=== PATIENT | male | born 1940 | race Caucasian/White ===

== ENCOUNTER → 2018-06-14 | Outpatient (CLI) | payer OTHER, MEDICARE | LOC: BMCIMAGING 13:57 | PROVIDERS: ATTEND Emergency Medicine | DX: M79.605 Pain in left leg (principal); M71.22 Synovial cyst of popliteal space [Baker], left knee ==

== ENCOUNTER 2018-11-19 09:37 | Inpatient (IN) | payer OTHER, MEDICARE ==
--- NOTE | 2018-11-19 10:01 | EDPHY ---
H & P Stated Complaint: syncopal event this mornning +LOC, possible siezure Time Seen by Provider: 11/19/18 09:47 HPI/ROS: Chief complaint: Syncope History of present illness: This is a 78-year-old male who presents to the emergency department for evaluation of a syncopal episode. Patient is visiting from [facility]. He arrived here approximately a week ago. Over the last few days he has felt slightly lightheaded. This morning he got up to urinate, he stood up from bed, walked over to the toilet, started to urinate at which time he collapsed. His and daughter found him in the bathroom. According to family he did momentarily appear to be stiff like he was having a seizure. No tonic-clonic activity was reported. Stiffness quickly resolved and patient quickly returned to baseline. It does not sound like there was a postictal state. At this time patient does state he is sore from where he struck himself during the fall. Patient does report for the last few days he has had a slight, nonproductive cough otherwise he denies other associated signs or symptoms including no fevers or other cold symptoms, no headache, no chest pain, no trouble breathing, no palpitations, no pain or swelling in the legs. He has had syncopal episodes previously. Review of systems: A 10 point review of systems was obtained and other than described above was negative - Medical/Surgical History Hx Asthma: No Hx Chronic Respiratory Disease: No Hx Diabetes: No Hx Cardiac Disease: No Hx Renal Disease: No Hx Cirrhosis: No Hx Alcoholism: No Hx HIV/AIDS: No Hx Splenectomy or Spleen Trauma: No Other PMH: [place] with stent, vasectomy, hypothyroid, HTN - Social History Smoking Status: Never smoked - Physical Exam Exam: General Appearance: Alert and oriented, no acute distress Eyes: PERRLA. Respiratory: Lungs clear to auscultation bilaterally. Cardiac: Regular rate and rhythm. Gastrointestinal: Bowel sounds normal. Abdomen is soft, nondistended, nontender. Neurological: Alert and oriented x4. Cranial nerves 2-12 grossly intact. Strength and sensation intact and symmetrical. Skin: No traumatic lesions noted. Musculoskeletal: The head is nontender without crepitus or bony deformity. The spine is nontender to palpation along its entire length, no crepitus, bony deformity or step-off. Chest wall intact palpation. Patient moving all extremities well. Constitutional: Initial Vital Signs Temperature (C) 36.7 C 11/19/18 09:40 Heart Rate 67 11/19/18 09:40 Respiratory Rate 18 11/19/18 09:40 Blood Pressure 150/87 H 11/19/18 09:40 O2 Sat (%) 95 11/19/18 09:40 O2 Delivery Mode Room Air Allergies/Adverse Reactions: Iodinated Contrast- Oral and IV Dye Allergy (Intermediate, Verified 11/19/18 11: 08) Other-Enter Comments Home Medications: Medication Instructions Recorded Atorvastatin Calcium [Lipitor 20 20 mg PO DAILY@12 06/10/16 mg (*)] Hydrochlorothiazide [HCTZ (*)] 25 mg PO DAILY@12 06/10/16 C/E/Zn/Cu/OM3/DHA/EPA/LUT/ZEAX 1 each PO BID 11/19/18 [Preservision Areds 2 Softgel] Herbals/Supplements -Info Only 1 ea PO DAILY 11/19/18 Ibuprofen [Motrin (*)] 200 mg PO DAILY PRN 11/19/18 Levothyroxine [Synthroid 50 mcg 50 mcg PO DAILY06 11/19/18 (*)] Medical Decision Making ED Course/Re-evaluation: Patient is discussed with my secondary supervising physician Dr. Anjana Lemus. Patient presents to the emergency department after having a syncopal episode today. He had lightheadedness leading up to the event. He does have a cardiac history. He is in ventricular trigeminy. Otherwise his workup is unremarkable. He he will be admitted to the hospitalist service for further evaluation and care. Plan has been discussed with the patient who voiced understanding and agreement with it. Differential Diagnosis: Included but not limited to syncope from volume depletion, vasovagal, cardiac disturbance, seizure activity - Data Points Laboratory Results: Laboratory Results 11/19/18 09:53 11/19/18 09:53 11/19/18 11/19/18 11/19/18 10:03 09:53 09:53 WBC RBC Hgb Hct MCV MCH MCHC RDW Plt Count MPV Neut % (Auto) Lymph % (Auto) Churchill % (Auto) Eos % (Auto) Baso % (Auto) Nucleat RBC Rel Count Absolute Neuts (auto) Absolute Lymphs (auto) Absolute Monos (auto) Absolute Eos (auto) Absolute Basos (auto) Absolute Nucleated RBC Immature Gran % Immature Gran # D-Dimer 0.45 ug/mLFEU ug/mLFEU (0.00-0.50) Sodium Potassium Chloride Carbon Dioxide Anion Gap BUN Creatinine Estimated GFR Glucose Calcium Magnesium 1.8 mg/dL mg/dL (1.6-2.3) POC Troponin I 0.02 ng/mL ng/mL (0.00-0.08) 11/19/18 11/19/18 09:53 09:53 WBC 13.32 10^3/uL H 10^3/uL (3.80-9.50) RBC 5.08 10^6/uL 10^6/uL (4.40-6.38) Hgb 16.2 g/dL g/dL (13.7-17.5) Hct 47.4 % % (40.0-51.0) MCV 93.3 fL fL (81.5-99.8) MCH 31.9 pg pg (27.9-34.1) MCHC 34.2 g/dL g/dL (32.4-36.7) RDW 13.0 % % (11.5-15.2) Plt Count 208 10^3/uL 10^3/uL (150-400) MPV 9.8 fL fL (8.7-11.7) Neut % (Auto) 78.2 % H % (39.3-74.2) Lymph % (Auto) 11.9 % L % (15.0-45.0) Churchill % (Auto) 7.9 % % (4.5-13.0) Eos % (Auto) 0.7 % % (0.6-7.6) Baso % (Auto) 0.5 % % (0.3-1.7) Nucleat RBC Rel Count 0.0 % % (0.0-0.2) Absolute Neuts (auto) 10.43 10^3/uL H 10^3/uL (1.70-6.50) Absolute Lymphs (auto) 1.59 10^3/uL 10^3/uL (1.00-3.00) Absolute Monos (auto) 1.05 10^3/uL H 10^3/uL (0.30-0.80) Absolute Eos (auto) 0.09 10^3/uL 10^3/uL (0.03-0.40) Absolute Basos (auto) 0.06 10^3/uL 10^3/uL (0.02-0.10) Absolute Nucleated RBC 0.00 10^3/uL 10^3/uL (0-0.01) Immature Gran % 0.8 % % (0.0-1.1) Immature Gran # 0.10 10^3/uL 10^3/uL (0.00-0.10) D-Dimer Sodium 139 mEq/L mEq/L (135-145) Potassium 3.9 mEq/L mEq/L (3.5-5.2) Chloride 104 mEq/L mEq/L (97-110) Carbon Dioxide 25 mEq/l mEq/l (22-31) Anion Gap 10 mEq/L mEq/L (6-14) BUN 20 mg/dL mg/dL (7-23) Creatinine 0.7 mg/dL mg/dL (0.7-1.3) Estimated GFR > 60 Glucose 128 mg/dL H mg/dL (70-100) Calcium 9.7 mg/dL mg/dL (8.5-10.4) Magnesium POC Troponin I Point of Care Test Results: Chemistry 11/19/18 10:03 POC Troponin I 0.02 ng/mL ng/mL (0.00-0.08) Departure - Departure Disposition: [facility] Inpatient Acute Clinical Impression: Syncope Qualifiers: Syncope type: unspecified Qualified Code(s): R55 - Syncope and collapse Condition: Good
[2018-11-19 10:14] LABS: PLATELET COUNT 208 10^3/uL (150-400)
[2018-11-19] MEDS ORDERED: ONDANSETRON 4 MG/2 ML VIAL IVP PRN (12:34)
[2018-11-19] MEDS ORDERED: ONDANSETRON DISINTEGRATING 4 MG TAB PO PRN (12:34)
[2018-11-19] MEDS ORDERED: ACETAMINOPHEN 325 MG TAB PO PRN (12:34)
[2018-11-19] MEDS ORDERED: IBUPROFEN 200 MG TAB PO PRN (12:49)
[2018-11-19] MEDS ORDERED: hydrALAZINE 20 MG/ML VIAL IVP PRN (13:02)
--- NOTE | 2018-11-19 13:02 | PDGENHP ---
History and Physical - Chief Complaint SYNCOPE - History of Present Illness This is a 78-year-old male who presents to the emergency department for evaluation of a syncopal episode. Patient is visiting from [facility]. He arrived here approximately a week ago. Over the last few days he has felt slightly lightheaded. This morning he got up to urinate, he stood up from bed, walked over to the toilet, started to urinate at which time he collapsed. His and daughter found him in the bathroom. There was no seizure activity noted. There was no postictal state. Denies fevers or other cold symptoms, no headache, no chest pain, no trouble breathing, no palpitations, no pain or swelling in the legs. He has had syncopal episodes previously. PMH: [place] with stent, vasectomy, hypothyroid, HTN - Social History Smoking Status: Never smoked FmHx: non contributory EKG: Trigeminy History Information - Allergies/Home Medication List Allergies/Adverse Reactions: Iodinated Contrast- Oral and IV Dye Allergy (Intermediate, Verified 11/19/18 11: 08) Other-Enter Comments Home Medications: Atorvastatin Calcium [Lipitor 20 mg (*)] 20 mg PO DAILY@12 06/10/16 [Last Taken 11/18/18] Hydrochlorothiazide [HCTZ (*)] 25 mg PO DAILY@12 06/10/16 [Last Taken 11/18/18] C/E/Zn/Cu/OM3/DHA/EPA/LUT/ZEAX [Preservision Areds 2 Softgel] 1 each PO BID [Last Taken 11/18/18 21:00] Herbals/Supplements -Info Only 1 ea PO DAILY 11/19/18 [Last Taken Unknown] Ibuprofen [Motrin (*)] 200 mg PO DAILY PRN 11/19/18 [Last Taken Unknown] Levothyroxine [Synthroid 50 mcg (*)] 50 mcg PO DAILY06 11/19/18 [Last Taken ] I have personally reviewed and updated: medical history, social history - Social History Smoking Status: Never smoked Review of Systems Review of Systems: ROS: 10pt was reviewed & negative except for what was stated in HPI & below Physical Exam Physical Exam: Temp Pulse Resp BP Pulse Ox 36.4 C 65 14 160/89 H 95 11/19/18 12:15 11/19/18 12:15 11/19/18 12:15 11/19/18 12:15 11/19/18 12:15 Constitutional: no apparent distress Eyes: PERRL, EOMI Ears, Nose, Mouth, Throat: moist mucous membranes, hearing normal Cardiovascular: regular rate and rhythym, No edema Respiratory: no respiratory distress, no rales or rhonchi, clear to auscultation Skin: warm Neurologic: AAOx3 Psychiatric: interacting appropriately, not anxious, not encephalopathic Lymph, Heme, Immunologic: No petechiae Lab Data & Imaging Review 11/19/18 09:53 11/19/18 09:53 WBC 13.32 10^3/uL (3.80-9.50) H 11/19/18 09:53 RBC 5.08 10^6/uL (4.40-6.38) 11/19/18 09:53 Hgb 16.2 g/dL (13.7-17.5) 11/19/18 09:53 Hct 47.4 % (40.0-51.0) 11/19/18 09:53 MCV 93.3 fL (81.5-99.8) 11/19/18 09:53 MCH 31.9 pg (27.9-34.1) 11/19/18 09:53 MCHC 34.2 g/dL (32.4-36.7) 11/19/18 09:53 RDW 13.0 % (11.5-15.2) 11/19/18 09:53 Plt Count 208 10^3/uL (150-400) 11/19/18 09:53 MPV 9.8 fL (8.7-11.7) 11/19/18 09:53 Neut % (Auto) 78.2 % (39.3-74.2) H 11/19/18 09:53 Lymph % (Auto) 11.9 % (15.0-45.0) L 11/19/18 09:53 Ward % (Auto) 7.9 % (4.5-13.0) 11/19/18 09:53 Eos % (Auto) 0.7 % (0.6-7.6) 11/19/18 09:53 Baso % (Auto) 0.5 % (0.3-1.7) 11/19/18 09:53 Nucleat RBC Rel Count 0.0 % (0.0-0.2) 11/19/18 09:53 Absolute Neuts (auto) 10.43 10^3/uL (1.70-6.50) H 11/19/18 09:53 Absolute Lymphs (auto) 1.59 10^3/uL (1.00-3.00) 11/19/18 09:53 Absolute Monos (auto) 1.05 10^3/uL (0.30-0.80) H 11/19/18 09:53 Absolute Eos (auto) 0.09 10^3/uL (0.03-0.40) 11/19/18 09:53 Absolute Basos (auto) 0.06 10^3/uL (0.02-0.10) 11/19/18 09:53 Absolute Nucleated RBC 0.00 10^3/uL (0-0.01) 11/19/18 09:53 Immature Gran % 0.8 % (0.0-1.1) 11/19/18 09:53 Immature Gran # 0.10 10^3/uL (0.00-0.10) 11/19/18 09:53 D-Dimer 0.45 ug/mLFEU (0.00-0.50) 11/19/18 09:53 Sodium 139 mEq/L (135-145) 11/19/18 09:53 Potassium 3.9 mEq/L (3.5-5.2) 11/19/18 09:53 Chloride 104 mEq/L (97-110) 11/19/18 09:53 Carbon Dioxide 25 mEq/l (22-31) 11/19/18 09:53 Anion Gap 10 mEq/L (6-14) 11/19/18 09:53 BUN 20 mg/dL (7-23) 11/19/18 09:53 Creatinine 0.7 mg/dL (0.7-1.3) 11/19/18 09:53 Estimated GFR > 60 11/19/18 09:53 Glucose 128 mg/dL (70-100) H 11/19/18 09:53 Calcium 9.7 mg/dL (8.5-10.4) 11/19/18 09:53 POC Troponin I 0.02 ng/mL (0.00-0.08) 11/19/18 10:03 Assessment & Plan Assessment: #Syncope, likely Vasovagal vs orthostatic. History of multiple syncope episodes -check TTE -Tele -orthostatics #HTN: reports he does not tolerate tight control. Permissive HTN has been chosen -for now hold HCTZ which he takes at home. #Leukocytosis, likely reactive #Trigeminy #HLD Plan: Admit w/u per above BP mgmt check electrolytes SCD's home meds
--- NOTE | 2018-11-19 15:14 | PDMN ---
Medical Necessity Medical necessity: Pt meets IP criteria per MD & MCG [id number]; est los >2 mn for eval/tx of ventricular trigemeny w/syncope; admit for further workup/monitoring & orthostatics; hx multiple syncopal episodes; per H&P & order 11/19/18
--- NOTE | 2018-11-19 15:35 | CPEKG ---
Test Reason : OPEN Blood Pressure : / mmHG Vent. Rate : 062 BPM Atrial Rate : 062 BPM P-R Int : 136 ms QRS Dur : 094 ms QT Int : 410 ms P-R-T Axes : 014 -09 150 degrees QTc Int : 417 ms Sinus rhythm Ventricular trigeminy Confirmed by Anjana Lemus ([id number]) on 11/19/2018 3:34:48 PM Referred By: Anjana Lemus Confirmed By:Anjana Lemus
--- NOTE | 2018-11-19 16:27 | ECHO ---
[email or web address] [address] Main: [phone] Echocardiography Examination Transthoracic Name: LANDY DOMINGUEZ MR#: [id number] Study Date: 11/19/2018 Study Time: 01:34 PM Date of : 1940 Age: 78 year(s) Height: 182.9 cm (72 in.) Weight: 86.18 kg (190 lb.) BSA: 2.08 m2 Gender: Male Examination: Echo Contrast: Image Quality: Rhythm: Normal sinus rhythm Heart Rate: 64 bpm BP: 160 mmHg/89 mmHg Indication: Cardiac: syncope Procedure Staff Referring Physician: Dental Coordinator: Jl Haile RDCS Reading Physician: Joey Reid MD Requesting Provider: Ordering Physician: Yony Stanford Indication: Cardiac: syncope Measurements Chambers AV/MV Label Value Normal Value Label Value Normal Value LVOT Vmax 0.9 m/s (0.7m/s - 1.1m/s) AV PGmax 9 mmHg LVOTd 2.1 cm (1.9cm - 2.1cm) AV PGmean 5 mmHg LVOT VTI 23 cm (18cm - 22cm) AV Vmax 1.51 m/s LVDd, 2D 4.8 cm (4.2cm - 5.9cm) DEANDRA (Vmax) 2.1 cm2 LVDs, 2D 3 cm (2.1cm - 4cm) DEANDRA (VTI) 2.8 cm2 IVSd, 2D 0.9 cm (0.6cm - 1.1cm) MV E Vmax 0.66 m/s LVPWd, 2D 0.9 cm (0.6cm - 1cm) MV A Vmax 0.96 m/s LVEF, 2D 66 % (54% - 74%) MV E/A 0.69 LVOT PGmean 2 mmHg MV E/E' lateral 8.7 LVOT Vmean 0.63 m/s MV E/E' septal 14.1 (0.45 - 1.25) RVDd, 2D 3.5 cm (1.9cm - 3.8cm) MV E' septal 0.05 m/s LA Volume, BP 35 ml (18ml - 58ml) MV E' lateral 0.08 m/s LADs, 2D 3.2 cm (3cm - 4cm) MV E/E' mean 10.15 LAESV index, BP 16.8 ml/m2 MV E' mean 0.06 m/s Additional Vessels TV/PV Label Value Normal Value Label Value Normal Value AoRoot, MM 3.8 cm (2.2cm - 3.7cm) RA Pressure 5 mmHg RVSP 39 mmHg TR Pmax 34 mmHg Patient: LANDY DOMINGUEZ Study Date: 11/19/2018 Page 1 of 2 01:34 PM TR Vmax 2.92 m/s MS End márquez Alex 0.58 cm/s PV PGmax 2 mmHg PV Vmax, Caliper 0.75 m/s (0.6m/s - 0.9m/s) Conclusions Normal left ventricular size with preserved LV systolic function. The ejection fraction is estimated at 55-60%. Normal left ventricular free wall thickness without regional wall motion abnormalities. Grade 1 diastolic dysfunction. Normal LA, RA and RV dimensions. Prominent moderator band. Trileaflet aortic valve with mild sclerosis. There is no stenosis or insufficiency. Normal-appearing mitral valve. Mild mitral annular calcification. Trivial mitral regurgitation. Normal-appearing tricuspid valve with mild tricuspid regurgitation. Mildly elevated estimated RVSP at 39 mmHg. No previous studies. Findings Left Ventricle: Left ventricle is normal in size. Normal global systolic left ventricular function. Left ventricle wall thickness is normal. There are no regional wall motion abnormalities. Grade I Diastolic Dysfunction. Right Ventricle: Normal size right ventricle. Right ventricular systolic function is normal. The moderator band is prominent. Left Atrium: The left atrium is normal in size. Right Atrium: The right atrium is normal in size. Mitral Valve: Mitral valve appears structurally normal. There is mild mitral calcification. Aortic Valve: Aortic leaflets are structurally normal. There is no aortic stenosis. Aortic leaflets exhibit mild calcification. The aortic valve is trileaflet. Tricuspid Valve: Tricuspid valve leaflets are normal in appearance and function. Mild tricuspid regurgitation. Right Ventricular systolic pressure is measured at 39 mmHg. Pulmonary artery pressure is upper limits of normal. Pulmonic Valve: Pulmonic leaflets are structurally normal. Trivial pulmonic valve regurgitation is present. Aorta: The aorta is normal. The aortic root size in M-mode measures 3.8 cm. Aorta Measurements AoRoot, MM is 3.8 cm. Pericardium: No pericardial effusion. Exam Details Procedure Ordered: Echo (No Signature Object) Patient: LANDY DOMINGUEZ Study Date: 11/19/2018 Page 2 of 2 01:34 PM [id number]
[2018-11-19] MEDS: PRESERVISION AREDS2 FORMULA EYE VIT 1 EACH PO SCH (21:06)
[2018-11-19] MEDS ORDERED: diphenhydrAMINE 25 MG CAP PO PRN (22:55)
[2018-11-20 04:36] LABS: PLATELET COUNT 185 10^3/uL (150-400)
[2018-11-20] MEDS ORDERED: LEVOTHYROXINE 50 MCG TAB PO SCH (06:00)
[2018-11-20] MEDS: PRESERVISION AREDS2 FORMULA EYE VIT 1 EACH PO SCH (09:59)
[2018-11-20 11:11] VITALS: BP 127/81
--- NOTE | 2018-11-20 11:23 | PDDCSUM ---
Discharge Summary Discharge Summary: Studies: TTE" LVEF 55%, no wall motion abnormalities, no significant valvular abnormalities, RVSP 30 mmHg Carotid US: no flow limiting stenosis Orthostatics: negative EKG: PVC's HPI/Hospital course: 78 yo male with hx of HTN admitted with syncope likely vasovagal. He has a hx of syncope. His episode occurred after getting up from bed and urinating while standing. He usually takes his time with getting up and he didnt this time. He usually sits when he urinates and he didnt this time. W/u was negative for reversible cause. There were no orthostasis. He has been continued on his home meds F/U: with PCP in November as scheduled DDX: #Syncope, likely Vasovagal vs orthostatic. History of multiple syncope episodes #HTN: reports he does not tolerate tight control. Permissive HTN is the goal. He was continued on HCTZ . #Leukocytosis, likely reactive #Trigeminy/PVC: chronic #HLD Exam: NAD AAOX3 RRR CTA B S/NT/ND MEDS: SEE MED REC TOTAL TIME SPENT ON D/C IS 35 MINS
--- NOTE | 2018-11-20 11:56 | ASDISCHSUM ---
Discharge Information Plan Status:Home with No Needs Medically Cleared to Leave: Discharge Date: CM D/C Disposition:Home, Routine, Self-Care ADT D/C Disposition:Home, Routine, Self-Care Projected Discharge Date: Transportation at D/C: Discharge Delay Reason: Follow-Up Date: Discharge Slot: Final Diagnosis: Placement Information Patient Contact Information Contact Name:JENNYFER Relationship: Address:[address] [place], [place] [address]Maxine COUGHLIN Work Phone: City:[facility] Phone: State/Zip Code:[place] [address] Email: Financial Information Financial Class:Medicare Primary Plan Desc:MEDICARE INPATIENT Primary Plan Number:[id number] Secondary Plan Desc:[employer]/MDR SUPPLEMENT Secondary Plan Number:[id number] Assessment Information LACE LACE Length of stay for Answers: Less than 1 day current admission Acuity / Level of Answers: Yes Care: Did the patient have an inpatient admission? Comorbidities - select Answers: Opioid dependence all that apply / Chronic pain Previous myocardial infarction Other Notes: Hypothyroid; HTN # of Emergency department Answers: 1-2 visits in the last 6 months Score: 10 Date Signed: 11/20/2018 11:55 AM Electronically Signed By:Katie Hernandez Intervention Information
[2018-11-20] MEDS ORDERED: HYDROCHLOROTHIAZIDE 25 MG TAB PO SCH (12:00)
[2018-11-20] MEDS ORDERED: ATORVASTATIN CALCIUM 20 MG TAB PO SCH (12:00)
== END 2018-11-20 12:30 | disposition home or self-care (01) | DRG 312 ==
LOC: F2W 12:13
PROVIDERS: ADMIT Family Medicine; ATTEND Family Medicine
DX: R55 Syncope and collapse (principal); I25.10 Atherosclerotic heart disease of native coronary artery without angina pectoris; I10 Essential (primary) hypertension; I49.3 Ventricular premature depolarization; E03.9 Hypothyroidism, unspecified; E78.5 Hyperlipidemia, unspecified; I25.2 Old myocardial infarction; Z95.5 Presence of coronary angioplasty implant and graft
CPT/HCPCS: 84484-ER; 97116-GP; 97161-GP; J0360